=== PATIENT | female | born 1980 ===

== ENCOUNTER 2022-10-05 09:28 | Outpatient (CLI) | payer OTHER | END 2022-10-05 10:49 | disposition home or self-care (01) | LOC: PRENATAL 09:28 | PROVIDERS: ATTEND Obstetrics & Gynecology Maternal & Fetal Medicine | DX: O36.80X0 Pregnancy with inconclusive fetal viability, not applicable or unspecified (principal); Z36.9 Encounter for antenatal screening, unspecified; O09.529 Supervision of elderly multigravida, unspecified trimester; O34.10 Maternal care for benign tumor of corpus uteri, unspecified trimester; Z3A.12 12 weeks gestation of pregnancy ==

== ENCOUNTER 2023-01-12 15:20 | Outpatient (CLI) | payer OTHER | END 2023-01-12 15:21 | disposition home or self-care (01) | LOC: PRENATAL 15:20 | PROVIDERS: ATTEND Obstetrics & Gynecology Maternal & Fetal Medicine | DX: O26.849 Uterine size-date discrepancy, unspecified trimester (principal); O09.529 Supervision of elderly multigravida, unspecified trimester; O34.10 Maternal care for benign tumor of corpus uteri, unspecified trimester; Z3A.26 26 weeks gestation of pregnancy ==

== ENCOUNTER 2023-03-08 14:21 | Outpatient (CLI) | payer OTHER | END 2023-03-08 14:22 | disposition home or self-care (01) | LOC: PRENATAL 14:21 | PROVIDERS: ATTEND Obstetrics & Gynecology Maternal & Fetal Medicine | DX: O26.849 Uterine size-date discrepancy, unspecified trimester (principal); O36.8199 Decreased fetal movements, unspecified trimester, other fetus; O09.529 Supervision of elderly multigravida, unspecified trimester; O34.10 Maternal care for benign tumor of corpus uteri, unspecified trimester; Z3A.34 34 weeks gestation of pregnancy ==